=== PATIENT | female | born 1940 | race Caucasian/White ===

== ENCOUNTER 2016-09-30 19:04 | Emergency (ER) | payer MEDICARE, OTHER ==
[2016-09-30 19:37] VITALS: TEMP 97.1
[2016-09-30] MEDS ORDERED: HYDROmorphone HCL INJ 2 MG/ML VIAL IM ONE ×3 (19:51→21:05)
--- NOTE | 2016-09-30 19:56 | ED.PDOC ---
History of Present Illness - General Chief Complaint: Laceration Stated Complaint: laceration to neck Time Seen by Provider: 09/30/16 19:45 Source: patient, family Exam Limitations: no limitations Additional Information: PT WAS WALKING DOG. SHE TRIPPED OVER A YARD ORNAMENT AND FELL ON IT AND CUT HER LEFT NECK. HER NECK SOFT TISSUE HIT THE ORNAMENT, NOT HER HEAD. SHE DENIES HEAD COLLISION. NO HEAD OR NECK JOINT PAIN (JUST LEFT ANTERIOR SOFT TISSUE). NO AMS; SHE JUST SLIPPED/TRIPPED. NO SWALLOWING OR BREATHING TROUBLES. SHE STATES SHE IS ALLERGIC TO THE TETANUS SHOT, THUS DECLINES. - History of Present Illness Occurred: just prior to arrival Severity: severe Pain Location: neck Method of Injury: fall Improving Factors: nothing Worsening Factors: nothing Loss of Consciousness: no loss of consciousness Associated Symptoms (Fall): denies symptoms Allergies/Adverse Reactions: Allergies Sulfa Drugs Allergy (Unknown, Verified 10/08/12 08:15) Tetanus Immune Globulin [From Tet-Conn G] Allergy (Unknown, Verified 10/08/12 08 :15) Home Medications: Ambulatory Orders Carbidopa-Levodopa [Carbidopa/Levodopa 25-100 mg] 1 tab PO PRN 08/29/15 Esomeprazole Magnesium [Nexium] 40 mg PO BEDTIME 08/29/15 Estradiol [Estrace] 0.5 mg PO BEDTIME 08/29/15 Gabapentin [Neurontin] 1,500 mg PO BEDTIME 08/29/15 HYDROcodone 10MG/APAP 325MG [[place] 10/325] 1 ea PO PRN 08/29/15 Lisinopril 10 mg PO DAILY 08/29/15 Polyethylene Glycol 3350 [Miralax] 17 gm PO DAILY 08/29/15 Triamcinolone 0.1% Oint [Kenalog 0.1% Ointment] 0 gm TOP PRN 08/29/15 Cephalexin Monohydrate [Keflex] 500 mg PO BID #14 cap 09/30/16 Review of Systems - Review of Systems Constitutional: States: no symptoms reported EENTM: Denies: eye pain, blurred vision, ear pain, nose pain, throat pain, mouth pain Respiratory: States: no symptoms reported. Denies: cough, short of breath Cardiology: States: no symptoms reported Gastrointestinal/Abdominal: States: no symptoms reported Genitourinary: States: no symptoms reported Musculoskeletal: States: no symptoms reported. Denies: neck pain Neurological: States: no symptoms reported Endocrine: States: no symptoms reported Hematologic/Lymphatic: States: no symptoms reported All other Systems: Reviewed and Negative Past Medical History (General) - Patient Medical History Hx Seizures: No Hx Stroke: No Hx Asthma: No Hx of COPD: No Hx Cardiac Disorders: No Hx Congestive Heart Failure: No Hx Pacemaker: No Hx Hypertension: Yes Hx Diabetes: No Hx MRSA: No Surgical History: appendectomy, Hysterectomy - Vaccination History Hx Tetanus, Diphtheria Vaccination: No - Social History Hx Alcohol Use: Yes Hx Substance Use: No Hx Physical Abuse: No Hx Emotional Abuse: No - Female History Patient is a Female of Child Bearing Age (10 -59 yrs old): No Family Medical History - Family History Father Living Status: Physical Exam - Physical Exam General Appearance: Alert, Well Groomed Head Injury: no evidence of injury Eye Exam: bilateral normal ENT Exam: hearing grossly normal, no dental injury Neck Exam: non-tender, full range of motion, normal alignment, other - L ANTERIOR SKIN AND SOFT TISSUE LAC of neck and mandibular face (8 cm). 1.5 cm face, 6.5 cm neck. Deep lac through skin, fascia, muscle, to mandibular bone but not through it. Facial Nerve tested and still in tact. 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 - Avery Coma Score Best Eye Response (Shashi): (4) open spontaneously Best Verbal Response (Shashi): (5) oriented Best Motor Response (Shashi): (6) obeys commands Avery Total: 15 Progress - Progress Progress: 09/30/16 22:52 LACERATION REPAIR NOTE: THIS WAS A COMPLEX REPAIR - IRREGULARLY SHAPED LACERATION THOUGH SKIN, FASCIA, AND MUSCLE OF LATERAL NECK AND FACE, TO MANDIBULAR BONE (WHICH WAS VISUALIZED THROUGH THE WOUND). DENTITION, TONGUE, PHARYNX, FACIAL NERVE AND TENDONS WERE TESTED VIA PHYSICAL EXAM AND NOTED TO BE SPARED. DIMENSIONS: LEFT ANTERIOR NECK 4.0 CM LINEAR BUT IRREGULAR. L MANDIBLE 2.5 CM TRANSVERSE BUT IRREGULAR. L INFERIOR FACE 1.5 CM LINEAR. DEPTH 3.0 CM (PROBED WITH QTIP). CLEANSED WITH COPIOUS NS THEN HIBICLENS. X-RAY NEG FOR FOREIGN BODY. ANESTHETIZED WITH 2%LICOCAINE WITH EPI X 12 ML. STERILE FIELD CREATED. CLOSED MUSCULAR LAYER WITH 3-0 CHROMIC X 9 SUTURES. CLOSED FAT AND FASCIAL LAYER WITH 3-0 CHROMIC X 8 SUTURES. CLOSED SKIN WITH 3-0 PROLENE X 16 SUTURES. PT MARGARETH PROCEDURE WELL. NO COMPLICATIONS. EBL < 5ML. Departure - Departure Clinical Impression: Laceration Disposition: Discharge to Home or Self Care Departure Forms: ED Discharge - Pt. Copy, Patient Portal Self Enrollment Instructions: DI for Laceration Repair -- Complex Diet: resume usual diet Activity: increase activity as tolerated Referrals: Celso Carrillo III, MD [Primary Care Provider] - 1-2 Days Prescriptions: Cephalexin Monohydrate [Keflex] 500 mg PO BID #14 cap Home Medications: Ambulatory Orders Carbidopa-Levodopa [Carbidopa/Levodopa 25-100 mg] 1 tab PO PRN 08/29/15 Esomeprazole Magnesium [Nexium] 40 mg PO BEDTIME 08/29/15 Estradiol [Estrace] 0.5 mg PO BEDTIME 08/29/15 Gabapentin [Neurontin] 1,500 mg PO BEDTIME 08/29/15 HYDROcodone 10MG/APAP 325MG [[place] 10/325] 1 ea PO PRN 08/29/15 Lisinopril 10 mg PO DAILY 08/29/15 Polyethylene Glycol 3350 [Miralax] 17 gm PO DAILY 08/29/15 Triamcinolone 0.1% Oint [Kenalog 0.1% Ointment] 0 gm TOP PRN 08/29/15 Cephalexin Monohydrate [Keflex] 500 mg PO BID #14 cap 09/30/16 Additional Instructions: Please leave bandage on until Saturday morning. On es AM, remove bandage in shower, twice daily cleanse with soap and water, pat dry, apply bacitracin ointment, and cover with a telfa or large bandaid. Please see your doctor in 1-2 days to look at the wound. Please have stitches removed in 5 to 7 days. Hydrocodone and tylenol are ok but avoid ibuprofen for 24 hours. See your doctor or return to the ER should you start to develop any problems using the muscles of your face or notice any facial drooping. Swelling and bruising on the left face are normal.
[2016-09-30] MEDS ORDERED: LIDOCAINE 2% W/ EPINEPHRINE 20 ML VIAL INJ ONE (20:42)
[2016-09-30] MEDS ORDERED: CHLORHEXIDINE GLUCONATE 4 % 15 ML UD TOP ONE (20:49)
--- NOTE | 2016-09-30 21:00 | RAD ---
EXAM DESCRIPTION: Neck,Soft Tissue CLINICAL HISTORY: laceration to neck COMPARISON: None FINDINGS: Two views of the soft tissues of the neck were submitted. Airway is patent. Prevertebral soft tissues are within normal limits. There is no radiopaque foreign body material. IMPRESSION: No acute abnormalities. Electronically signed by: Devon Hernandez MD 09/30/2016 8:25 PM DRAW HAND
[2016-09-30] MEDS ORDERED: HYDROmorphone HCL INJ 2 MG/ML VIAL ONE (21:02)
[2016-09-30] MEDS ORDERED: BACITRACIN-POLYMYXIN B OINT U/D PACK TOP ONE (22:28)
[2016-09-30 22:59] VITALS: O2SAT 94
[2016-09-30 23:20] VITALS: BP 100/71
--- NOTE | 2016-10-03 11:58 | RAD ---
EXAM DESCRIPTION: Neck,Soft Tissue CLINICAL HISTORY: laceration to neck COMPARISON: None FINDINGS: Two views of the soft tissues of the neck were submitted. Airway is patent. Prevertebral soft tissues are within normal limits. There is no radiopaque foreign body material. IMPRESSION: No acute abnormalities. Electronically signed by: Devon Hernandez MD 09/30/2016 8:25 PM METAL PRECISION MACHINE ASSEMBLER
--- NOTE | 2016-10-21 23:54 | RAD ---
EXAM DESCRIPTION: Neck,Soft Tissue CLINICAL HISTORY: laceration to neck COMPARISON: None FINDINGS: Two views of the soft tissues of the neck were submitted. Airway is patent. Prevertebral soft tissues are within normal limits. There is no radiopaque foreign body material. IMPRESSION: No acute abnormalities. Electronically signed by: Devon Hernandez MD 09/30/2016 8:25 PM SWINE EXTENSION FIELD SPECIALIST
--- NOTE | 2016-10-21 23:54 | RAD ---
EXAM DESCRIPTION: Neck,Soft Tissue CLINICAL HISTORY: laceration to neck COMPARISON: None FINDINGS: Two views of the soft tissues of the neck were submitted. Airway is patent. Prevertebral soft tissues are within normal limits. There is no radiopaque foreign body material. IMPRESSION: No acute abnormalities. Electronically signed by: Devon Hernandez MD 09/30/2016 8:25 PM SUPERVISOR SHIPPING ROOM
== END 2016-09-30 23:19 | disposition home or self-care (01) ==
LOC: ER 19:04
DX: S11.91XA Laceration without foreign body of unspecified part of neck, initial encounter (principal); I10 Essential (primary) hypertension; Z88.2 Allergy status to sulfonamides; Z79.899 Other long term (current) drug therapy; Z88.7 Allergy status to serum and vaccine; W01.118A Fall on same level from slipping, tripping and stumbling with subsequent striking against other sharp object, initial encounter; Y92.007 Garden or yard of unspecified non-institutional (private) residence as the place of occurrence of the external cause
CPT/HCPCS: 70360; J1170

== ENCOUNTER → 2016-12-03 | Outpatient (CLI) | payer MEDICARE, OTHER | END | disposition home or self-care (01) | LOC: GMAL 10:54 | PROVIDERS: ATTEND Family Medicine | DX: D53.9 Nutritional anemia, unspecified (principal); E55.9 Vitamin D deficiency, unspecified ==

== ENCOUNTER → 2016-12-13 | Outpatient (CLI) | payer MEDICARE, OTHER ==
--- NOTE | 2016-12-13 19:32 | MRI ---
EXAM: Brain w/wo Contrast CLINICAL INDICATION: 76-year-old female with headache. Technologist note: Headache, facial droop, left-sided face since fall one and a half months ago. Patient passed out and hit LEFT side of body, could not remember what happened. Facial droop since fall. COMPARISON: None. TECHNIQUE: Multiplanar, multi-sequence MR imaging of the brain pre-and post intravenous administration of gadolinium. FINDINGS: No abnormal increased signal intensity is present on diffusion-weighted imaging to suggest restricted diffusion/acute infarction. There is no evidence of intracranial hemorrhage, mass or edema. Midline structures are within normal limits. Nonspecific 3 mm faint focus of subcentimeter enhancement is identified present level of the RIGHT caudate raising the question of focus of nonspecific enhancement including small focal cavernous malformation other vascular malformation including capillary hemangioma, sequela of subacute infarction and much less likely small focus of demyelination or metastasis, however short-term interval follow-up is recommended. Slight increased FLAIR signal is noted. Postcontrast imaging reveals large LEFT frontal developmental venous anomaly, normal anatomic variant. The ventricles and basal cisterns are normal in size and configuration. Major intracranial flow voids are identified. The paranasal sinuses and mastoid air cells are patent. IMPRESSION: 1. No abnormal increased signal intensity is present on diffusion-weighted imaging to suggest restricted diffusion/acute infarction. 2. Focal area of nonspecific enhancement at the level of the RIGHT caudate head with differential and details as above. Short-term interval follow-up is recommended to assess for stability or resolution. 3. No specific MRI findings noted to suggest etiology of the patient's facial droop. Electronically signed by: Amanda Platt MD 12/13/2016 7:31 PM CDT
== END ==
LOC: MRI 09:06
PROVIDERS: ATTEND Family Medicine
DX: I69.992 Facial weakness following unspecified cerebrovascular disease (principal); R51 Headache

== ENCOUNTER → 2016-12-17 | Outpatient (CLI) | payer MEDICARE, OTHER | END | disposition home or self-care (01) | LOC: GMAL 17:19 | PROVIDERS: ATTEND Family Medicine | DX: L03.90 Cellulitis, unspecified (principal) ==

== ENCOUNTER → 2017-05-06 | Outpatient (CLI) | payer MEDICARE, OTHER | END | disposition home or self-care (01) | LOC: GMAL 10:28 | PROVIDERS: ATTEND Family Medicine | DX: D51.3 Other dietary vitamin B12 deficiency anemia (principal); E55.9 Vitamin D deficiency, unspecified ==

== ENCOUNTER → 2017-05-13 | Outpatient (CLI) | payer MEDICARE, OTHER | END | disposition home or self-care (01) | LOC: GMAL 14:28 | PROVIDERS: ATTEND Family Medicine | DX: R30.0 Dysuria (principal) ==

== ENCOUNTER → 2017-05-15 | Outpatient (CLI) | payer MEDICARE, OTHER ==
--- NOTE | 2017-05-16 09:35 | US ---
EXAM DESCRIPTION: Breast,Left CLINICAL HISTORY: 76 yearsFemaleBREAST LUMP . Ridgelike tissue on the lateral left breast. COMPARISON: Digital 3-D tomosynthesis bilateral breasts on this visit. Thyroid ultrasound on this visit. TECHNIQUE: Transcutaneous scanning of the left breast utilizing two-dimensional and Doppler modes. Scanning performed by the lodging facilities attendant and Dr. Ugalde. FINDINGS: Scanning at the 300 clock position of the left breast 8 cm from the nipple. Homogeneous fatty tissue noted. No discrete solid mass or cyst. No parenchymal edema or calcifications. Nonvascular. IMPRESSION: 1. Bi-Rads Category 2: Benign. 2. Please refer to bilateral 3-D breast tomosynthesis diagnostic examination on this visit. The findings and the follow-up plan were reviewed in person with the patient after the examination.. Written communication regarding the impression and follow-up will be mailed to the patient and referring health care provider. Electronically signed by: Vinny Ugalde MD 05/16/2017 9:33 AM [facility]
--- NOTE | 2017-05-16 09:53 | US ---
EXAM DESCRIPTION: Thyroid CLINICAL HISTORY: NONTOXIC SINGLE THYROID NODULE COMPARISON: Patient had diagnostic 3-D breast tomosynthesis bilaterally today and left breast ultrasound. TECHNIQUE: Transcutaneous scannin-dimensional and Doppler modes. FINDINGS: Right lobe dimensions 4.1 x 1.8 x 1.5 cm. Heterogeneous echoes. Complex nodule in the upper right lobe of the gland with transverse diameter 1.4 cm. Sagittal dimensions are 1.6 x 0.8 cm, nonvascular in the lower pole is a mostly hypoechoic solid nodule measuring 1.3 cm transverse and 1.4 x 0.7 cm in the sagittal plane. Nonvascular. Complex nodule which is mostly cystic with possible mural nodular thickening measuring 1.2 cm transverse and 1.1 x 0.9 cm in the sagittal plane. Nonvascular. Vascularity No microcalcifications. Contour right lobe smooth. Juxta-thyroid masses/fluid: none. Left lobe dimensions 3.5 x 1.6 x 1.5 cm. Heterogeneous echoes. Complex nodule in the mid lobe measuring 1.0 cm transverse and 5.7 x 8.8 mm sagittal. Nonvascular. Otherwise normal vascularity No microcalcifications. Contour left lobe smooth. Juxta-thyroid masses/fluid: none. Isthmus thickness 1.7 mm. Heterogeneous echoes. No cystic, no solid, and no complex lesions. Otherwise normal vascularity. Contour smooth. IMPRESSION: 1. Two complex nodules in the right lobe of the thyroid gland with transverse diameter of almost 1.5 cm. These nodules are not vascular. These nodules meet the imaging criteria for Fine needle aspiration sampling according to RP best practice guidelines, adopted from ACR white paper and Beatty 3-tiered guidelines on incidental thyroid nodules. Please see below.* Other nodules in the right lobe and left lobe do not meet these criteria. These recommendations do not apply to patients with increased risk for thyroid cancer or patients with symptomatic thyroid disease. 2. No discrete solid masses, cystic masses, or edema in the surrounding soft tissues. *Further evaluation by thyroid US recommended for: -Solitary incidental thyroid nodule (ITN) with high risk imaging features (locally invasive nodule or suspicious lymph nodes) -Solitary ITN of any size in pediatric patients <= 18 years of age -Solitary ITN >= 1 cm in axial plane in patients between 18 and 35 years of age -Solitary ITN >= 1.5 cm in axial plane in patients >= 35 years of age -Heterogeneous enlarged thyroid gland -ITN avid on FDG-PET or other nuclear medicine (MIBI and octreotide) scans. FNA biopsy is also recommended for PET avid nodules. 2.No f/u imaging is recommended for ITN's not meeting the above criteria. 3.For multiple thyroid nodules, the above recommendations for solitary ITN are to be applied to the largest nodule. 4.No US or f/u recommended for ITN's without high risk features in patients with limited life expectancy or significant co-morbidities, unless clinically warranted. 5.These recommendations do not apply to patients w/ increased risk for thyroid cancer or patients with symptomatic thyroid disease. Recommendations for f/u of Incidental Thyroid Nodules (ITN) found on CT, MR, NM and Extrathyroidal US are based upon the ACR white paper and Beatty 3-tiered system for managing ITN's: J Am [employer]nette Radiology 2015 Sep;12(2): 143-50 Electronically signed by: Vinny Ugalde MD 05/16/2017 9:52 AM CDT
--- NOTE | 2017-05-16 11:22 | MAM ---
EXAM DESCRIPTION: 3D Diagnostic, Bilateral CLINICAL HISTORY: 76 yearsFemaleBREAST LUMP mother with history of breast cancer. Remote family history of breast cancer. Bilateral benign breast biopsies. Hysterectomy 1978. Currently on HRT. COMPARISON: 2-D digital screening bilateral study 06/18/2016.. No prior reports available. Reports from prior examinations also reviewed. Report from prior examination also reviewed. TECHNIQUE: Bilateral CC , LM, and MLO projection full-field images, 3-D tomosynthesis digital mammographic technique. Also bilateral synthesized CC/ MLO , and LM full-field images. CAD not utilized. FINDINGS: The breast parenchymal density pattern is: Scattered areas of fibroglandular density. No skin thickening or nipple retraction skin marker at the 300 clock position of the middle third of the left breast where patient palpates a mass. Small ridgelike tissue palpable. Bilateral microcalcifications and coarse calcifications. Small axillary lymph nodes. Bilateral intramammary lymph nodes. Larger calcifications in the bilateral breasts may indicate areas of fat necrosis. No focal, stellate mass or density, focal asymmetry , and no suspicious microcalcifications bilaterally. Stable mammograms compared to prior study, taking into account differences in mammographic technique. ULTRASOUND: Scanning at the 300 clock position of the left breast 8 cm from the nipple. Homogeneous fatty tissue noted. No discrete solid mass or cyst. No parenchymal edema or calcifications. No abnormal vascularity. IMPRESSION: BI-RADS CATEGORY: 2 - BENIGN FINDINGS. FOLLOW UP: Return to routine digital bilateral screening, one year interval from April 2017. Written communication explaining the IMPRESSION and follow-up, will be mailed to the patient and referring health care provider. According to the [employer], yearly mammograms are recommended starting at age 40 and continuing as long as a woman is in good health. Any breast change noted on a breast self-exam should be reported promptly to the patient's healthcare provider. Breast MRI is recommended for women with an approximately 20-25% or greater lifetime risk of breast cancer, including women with a strong family history of breast or ovarian cancer and women who have been treated for Hodgkin's disease. A negative mammographic report should not delay tissue diagnosis in patients with significant clinical history or physical findings. Extremely dense breast tissue limits the sensitivity of digital mammography. Electronically signed by: Vinny Ugalde MD 05/16/2017 11:21 AM CDT
== END | disposition home or self-care (01) ==
LOC: MAMMO 10:57
PROVIDERS: ATTEND Family Medicine
DX: Z12.31 Encounter for screening mammogram for malignant neoplasm of breast (principal); E04.1 Nontoxic single thyroid nodule
CPT/HCPCS: 76536; 76641; G0202; G0279

== ENCOUNTER → 2017-05-29 | Outpatient (CLI) | payer MEDICARE, OTHER ==
--- NOTE | 2017-05-29 16:25 | US ---
EXAM DESCRIPTION: Biopsy of Thyroid CLINICAL HISTORY: 76 yearsFemale COMPARISON: Ultrasound thyroid gland 05/15/2017. TECHNIQUE: Procedure was explained to the patient with risks and benefits. The patient gave verbal and written consent. Sterile preparation draping. 1% xylocaine dermal anesthetic. Sterile ultrasound guidance. A total of eight passes four into the nodule in the upper right lobe and four in the more inferior nodule with a cystic component. Three needle samplings per nodule with a separate 1.5 inch, 25-gauge needle per sample, and one aspiration, or nodule with a separate 1.5 inch, 25-gauge needle/10-cc syringe set, per aspiration. Each sample was placed on a separate slide and fixed in 95% alcohol container. for later pathologic examination at remote facility. . Aspirate and needle placed in Saccomanno fluid container. Patient tolerated procedure well, with no immediate complications. FINDINGS: Prior to the procedure, images of the nodules show no significant change from the prior study. Images demonstrate the echogenic needle within each of the nodules in the right lobe of the thyroid gland. Adequate Samples and aspirates were obtained. IMPRESSION: Successful, ultrasound-guided fine-needle sampling and aspiration of two nodules in the right lobe of the thyroid gland. Pathology reports are pending at remote laboratory facility. Electronically signed by: Vinny Ugalde MD 05/29/2017 4:24 PM CDT
== END | disposition home or self-care (01) ==
LOC: US 09:57
PROVIDERS: ATTEND Family Medicine
PROC: 0GBH3ZX Excision of Right Thyroid Gland Lobe, Percutaneous Approach, Diagnostic (ICD-10-PCS; principal; 2017-05-29)
PROC: BG44ZZZ Ultrasonography of Thyroid Gland (ICD-10-PCS; 2017-05-29)
DX: E04.1 Nontoxic single thyroid nodule (principal)

== ENCOUNTER → 2017-11-21 | Outpatient (CLI) | payer MEDICARE, OTHER ==
--- NOTE | 2017-11-22 08:02 | RAD ---
EXAM DESCRIPTION: Ankle,Left 3 Views CLINICAL HISTORY: 76 years, Female, PAIN IN LEFT ANKLE COMPARISON: None. TECHNIQUE: AP/lateral/oblique of the left ankle FINDINGS: Intact medial and lateral malleolus. There is minimal soft tissue swelling laterally and medially. Proximal metatarsals appear intact. Few phleboliths in the lower leg. Intact dome of the talus. Lateral view shows no evidence of fracture of the body of the talus or calcaneus. No calcaneal spurring is seen. No ankle joint narrowing, spurring or effusion. IMPRESSION: Negative for fracture or dislocation. Electronically signed by: Flako Bowman MD 11/22/2017 8:00 AM CDT
--- NOTE | 2017-11-22 08:03 | RAD ---
EXAM DESCRIPTION: Foot,Left 3 Views CLINICAL HISTORY: 76 years, Female, PAIN IN LEFT FOOT COMPARISON: None TECHNIQUE: AP, lateral, and oblique views of the left foot FINDINGS: No fracture or dislocation. There is no other bone, joint, or soft tissue abnormality observed. Bones appear osteopenic. There is no radiopaque foreign body. Question small ankle joint effusion on lateral view with minimal spurring. IMPRESSION: Negative for fracture or dislocation. Electronically signed by: Flako Bowman MD 11/22/2017 8:01 AM CDT
== END ==
LOC: RAD 08:39
PROVIDERS: ATTEND Orthopaedic Surgery
DX: M79.672 Pain in left foot (principal); M25.572 Pain in left ankle and joints of left foot

== ENCOUNTER → 2017-12-02 | Outpatient (CLI) | payer MEDICARE, OTHER ==
--- NOTE | 2017-12-02 10:32 | CT ---
EXAM DESCRIPTION: Abdomen/Pelvis w/Contrast: Computed Tomography. CLINICAL HISTORY: ABDOMINAL DISTENSION COMPARISON: None. TECHNIQUE: Spiral-axial scans at 5.0 mm intervals through the abdomen and pelvis, after nonionic IV contrast. No oral contrast. Coronal and sagittal 2.0 mm reconstructions. Delayed scans, liver through the pelvis. Axial-spiral 5mm. No adverse reactions. Total Exam DLP: 1832.74 mGy-cm. This exam was performed according to our departmental dose-optimization program which includes automated exposure control, adjustment of the mA and/or kV according to patient size and/or use of iterative reconstruction technique; to reduce radiation dose to as low as reasonably achievable (ALARA). FINDINGS: Lung bases and pleura: Minimal atelectasis in the bilateral bases. Liver, Stomach, Spleen, Adrenal Glands: 2.2 cm cyst with Hounsfield density +16 and the left lobe of the liver. Large hiatal hernia. Other solid organs are negative.. Pancreas, Gallbladder, Ducts: Minimally distended. Intermediate signal in the neck of the gallbladder. Pancreatic duct upper normal caliber. Pancreas negative. Kidneys and Ureters: Unremarkable. Mesentery: Normal density. No fascial thickening. No free air or free fluid. Aorta: 3.1 cm AP diameter between the diaphragm hiatus and the origin of the celiac axis. Moderate atherosclerotic calcification. Small Bowel: Unremarkable. Terminal Ileum/Cecum: Negative. Appendix not seen. Colon: Redundant splenic flexure. Diverticula in the distal descending colon and sigmoid colon. Redundant sigmoid colon. Pelvic Organs: No fluid in the cul-de-sac. Vaginal cuff is unremarkable. No radiodense stones in the urinary bladder which is minimally distended. Spine and Bony Pelvis: Minimal compression of the mid and anterior aspect of the L1 vertebral body. 3 mm retropulsion of the inferior endplate but no canal stenosis. Spondylosis and disc space narrowing at L5-S1 with bilateral foraminal narrowing. Abdominal Wall/Back Soft Tissues: Negative. IMPRESSION: 1. 2.2 cm cyst in the left hepatic lobe otherwise unremarkable. 2. Moderate hiatal hernia. 3. 3.1 cm abdominal aortic aneurysm between the diaphragm hiatus and the origin of the celiac axis. Imaging follow-up recommended in 3 year interval according to [facility] Best Practice recommendations utilizing guidelines from the Society for Vascular Surgery. Please see below.* 4. Diverticulosis distal colon with sigmoid redundancy but no complications. 5. Probably old compression injury L1 vertebral body with minimal retropulsion. Spondylosis L5-S1. *AAA Size: Follow-up Recommendation (1): 2.6 - 2.9 cm Every 5 years (2) 3.0 - 3.4 cm Every 3 years 3.5 - 3.9 cm Every 12 months 4.0 - 4.4 cm Every 12 months, vasc consult rec 4.5 - 5.4 cm Every 6 months, vasc consult rec >=5.5 cm Referral to vascular surgeon recommended (1)Based upon the Society for Vascular Surgery Guidelines: J Vasc Surg. 2009 May;50(4 Suppl):S2-49 (2)For aortas of max marjan of 2.6-2.9 cm that meet criteria for AAA (>= 1.5 x proximal normal segment) Electronically signed by: Vinny Ugalde MD 12/02/2017 10:31 AM CDT
== END | disposition home or self-care (01) ==
LOC: CT 08:00
PROVIDERS: ATTEND Internal Medicine Gastroenterology
DX: R14.0 Abdominal distension (gaseous) (principal)

== ENCOUNTER 2018-01-01 08:00 | Day surgery (SDC) | payer MEDICARE, OTHER ==
[~2018-01-01 08:00] MED LIST: LACTATED RINGERS 1,000 ML ONE
[2018-01-01 09:56] VITALS: TEMP 97.6
--- NOTE | 2018-01-01 09:59 | OP ---
DATE OF PROCEDURE: 01/01/18 PREPROCEDURE DIAGNOSIS: 1. Colorectal cancer screening. POSTPROCEDURE DIAGNOSIS: 1. Diverticulosis. PROCEDURE: 1. Colonoscopy. SURGEON: Carlos Moreno MD. SEDATION: Monitored anesthesia care. ESTIMATED BLOOD LOSS: 0 mL. PROCEDURE: Informed consent was obtained prior to sedation. The preprocedure cardiopulmonary assessment was satisfactory. The patient was brought to the Endoscopy Suite and placed in the left lateral decubitus position. The patient was then sedated by the anesthesia team. Perianal exam was normal. Digital rectal exam showed an anal stricture. The tip of the Olympus colonoscope was inserted into the rectum and advanced under direct visualization to the cecum as identified by the presence of the appendiceal orifice and ileocecal valve. Preparation of the colon was adequate. Upon reaching the cecum, the endoscope was slowly withdrawn from the patient with careful attention paid to the entire colonic mucosa for the identification of any flat polyps or small vascular lesions. No polyps were found. There was diverticulosis throughout the entire colon. Retroflexed view of the anal verge showed no abnormalities. The endoscope was then withdrawn from the patient and the procedure terminated. RECOMMENDATION: 1. Discharge the patient home with escort. 2. Resume regular diet. 3. Continue present medications. 4. No further colorectal screening due to age and absence of polyps. 5. Followup in my office as previously scheduled. #[id number] [facility]
[2018-01-01] MEDS ORDERED: LIDOCAINE 1% 10 ML VIAL INJ ONE (10:00)
[2018-01-01] MEDS ORDERED: PROPOFOL 200 MG/20 ML VIAL IV ONE (10:00)
[2018-01-01 13:26] VITALS: BP 118/70; O2SAT 96
== END 2018-01-01 10:38 ==
LOC: AMB 08:00
PROVIDERS: ATTEND Internal Medicine Gastroenterology
DX: Z12.11 Encounter for screening for malignant neoplasm of colon (principal); K57.30 Diverticulosis of large intestine without perforation or abscess without bleeding; R14.0 Abdominal distension (gaseous); K59.00 Constipation, unspecified; K21.9 Gastro-esophageal reflux disease without esophagitis; I10 Essential (primary) hypertension; Z80.0 Family history of malignant neoplasm of digestive organs; Z87.891 Personal history of nicotine dependence; Z88.2 Allergy status to sulfonamides; Z88.7 Allergy status to serum and vaccine; Z79.82 Long term (current) use of aspirin; Z79.899 Other long term (current) drug therapy
CPT/HCPCS: 00812; G0105; J3490; J7120

== ENCOUNTER → 2018-06-20 | Outpatient (CLI) | payer MEDICARE, OTHER ==
--- NOTE | 2018-06-20 12:56 | US ---
US THYROID CLINICAL STATEMENT: ENLARGEMENT OF THYROID. No palpable mass. No prior thyroid surgery. No thyroid medication. COMPARISON: Thyroid ultrasound 05/15/2017. FINDINGS: Size right thyroid lobe: 4.1 x 1.8 x 1.5 cm Size left thyroid lobe: 3.5 x 1.6 x 1.5 cm Size isthmus: 0.17 cm Estimated total number of nodules greater than or equal to 1 cm: 4 Nodule 1: Size: 1.4 x 1.4 x 0.8 cm Location: Right Mid Composition: spongiform: 0 points Echogenicity: hypoechoic: 2 points Shape: wider than tall: 0 points Margins: smooth: 0 points Echogenic foci: peripheral calcifications: 2 points ACR Total Points: 4; ACR TI-RADS risk category: TR4 - moderately suspicious nodule. Nodule 2: Size: 1.1 x 0.9 x 0.8 cm Location: Right Mid Composition: cystic or completely cystic: 0 points Echogenicity: hypoechoic: 2 points Shape: wider than tall: 0 points Margins: smooth: 0 points Echogenic foci: large comet tail artefact: 0 points ACR Total Points: 2; ACR TI-RADS risk category: TR2 - nonsuspicious nodule. Nodule 3: Size: 1.5 x 1.1 x 0.9 cm Location: Right Lower Composition: solid or almost completely solid: 2 points Echogenicity: hypoechoic: 2 points Shape: wider than tall: 0 points Margins: smooth: 0 points Echogenic foci: none: 0 points ACR Total Points: 4; ACR TI-RADS risk category: TR4 - moderately suspicious nodule. Nodule 4: Size: 1.0 x 0.9 x 0.6 cm Location: Left Mid Composition: solid or almost completely solid: 2 points Echogenicity: hypoechoic: 2 points Shape: wider than tall: 0 points Margins: smooth: 0 points Echogenic foci: none: 0 points ACR Total Points: 4; ACR TI-RADS risk category: TR4 - moderately suspicious nodule. Another mostly cystic structure in the lower left lobe with single echogenic focus measures 0.5 x 0.5 x 0.3 cm. Wider than tall, smooth margins, no calcifications. Soft tissues around the thyroid gland show no evidence of distinct solid mass or cyst. No abnormal vascularity or overlying skin changes. No parenchymal edema or large calcifications. IMPRESSION: 1. Nodule 1: ACR TI-RADS 2017 Category 4. Recommend: Follow-up ultrasound in 1 year.. 1.4 cm maximum diameter. Please see ACR TI-RADS 2017 recommendations below.* 2. Nodule 2: ACR TI-RADS 2017 Category 2. Recommend: No further follow-up.. 3. Nodule 3: ACR TI-RADS 2017 Category 4. Recommend: Ultrasound-guided fine needle aspiration. 4. Nodule 4: ACR TI-RADS 2017 Category 4. Recommend: Follow-up ultrasound in 1 year. Soft tissues around the thyroid gland are unremarkable. *ACR TI-RADS 2017 Recommendations: TR1: No FNA or follow up TR2: No FNA or follow up TR3: FNA if >/= 2.5 cm, follow up if 1.5 - 2.4 cm in 1, 3, and 5 years TR4: FNA if >/= 1.5 cm, follow up if 1.0 - 1.4 cm in 1, 2, 3, and 5 years TR5: FNA if >/= 1.0 cm, follow up if 0.5 - 0.9 cm every year for 5 years ACR TI-RADS recommends that no more than two nodules with the highest ACR TI-RADS total point should be biopsied and no more than four nodules should be followed. Electronically signed by: Vinny Ugalde MD 06/20/2018 12:55 PM CDT
--- NOTE | 2018-06-23 16:25 | MAM ---
EXAM DESCRIPTION: 3D Screening BILATERAL : Digital Mammography. CLINICAL HISTORY: 77 years Female SCREENING . Tenderness around nipple; sensation of a burn. No personal or family history of breast cancer.. Childbirth. Hysterectomy 49 years ago. Currently on HRT. Bilateral breast biopsies. Lifetime risk of developing breast cancer (Tyrer-Cuzick model)(%): 5.2. COMPARISON: 2-D digital screening bilateral mammography 06/18/2016. Bilateral diagnostic digital breast tomosynthesis 05/15/2017. No prior reports available. TECHNIQUE: Bilateral CC and MLO projection full-field images, Digital tomosynthesis mammographic technique. Bilateral digital 2-D full-field MLO images. CAD not utilized. FINDINGS: The breast parenchymal density pattern is: Almost entirely fatty. No skin thickening or nipple retraction. Right axillary lymph nodes and anterior coarse calcification with medial posterior skin moles. Large coarse calcification in the central left breast with axillary lymph node. Stable since the prior study. Solitary bilateral microcalcifications. No new focal, stellate mass or density, focal asymmetry , and no suspicious microcalcifications bilaterally. Stable mammograms compared to prior study. IMPRESSION: Benign exam. BIRAD CATEGORY: 2 BENIGN FINDINGS. RECOMMENDATIONS: FOLLOW UP: Routine digital bilateral screening, one year interval from May 2018. Written communication explaining the IMPRESSION and follow-up, will be mailed to the patient and referring health care provider. According to the [employer], yearly mammograms are recommended starting at age 40 and continuing as long as a woman is in good health. Any breast change noted on a breast self-exam should be reported promptly to the patient's healthcare provider. Breast MRI is recommended for women with an approximately 20-25% or greater lifetime risk of breast cancer, including women with a strong family history of breast or ovarian cancer and women who have been treated for Hodgkin's disease. A negative mammographic report should not delay tissue diagnosis in patients with significant clinical history or physical findings. Extremely dense breast tissue limits the sensitivity of digital mammography. Electronically signed by: Vinny Ugalde MD 06/23/2018 4:23 PM CDT
== END ==
LOC: MAMMO 11:30
PROVIDERS: ATTEND Family Medicine
DX: Z12.31 Encounter for screening mammogram for malignant neoplasm of breast (principal); E07.9 Disorder of thyroid, unspecified

== ENCOUNTER → 2018-06-25 | Outpatient (CLI) | payer MEDICARE, OTHER ==
--- NOTE | 2018-06-25 15:39 | US ---
Thyroid Ultrasound Biopsy CLINICAL INFORMATION: Mostly solid nodule inferior right lobe on prior thyroid ultrasound 06/20/2018. TECHNIQUE: Procedure was explained to the patient with risks and benefits. The patient gave verbal and written consent. Sterile preparation draping. 1% xylocaine dermal anesthetic 9-1 mixture with sodium bicarbonate. Sterile ultrasound guidance. A total of 6 passes solid nodule inferior right lobe; 3 needle samplings with a separate 1.5 inch, 25-gauge needle per sample, and 3 aspirations, with a separate 1.5 inch, 25-gauge needle/10-cc syringe set, per aspiration. Each sample was placed on a separate slide and fixed in 95% alcohol container. Saccomanno fluid drawn into aspirate needle and rinse injected into Saccomanno container. Specimens to be sent for pathologic examination at remote facility. . Patient tolerated procedure well. Biopsy #: 1 Nodule reference number based on prior diagnostic ultrasound:3 Maximum size: 1.5 cm Location: right; lower ACR TI-RADS risk category: TR4 (4-6 points) Reason for biopsy: meets ACR TI-RADS criteria Complications: None . Images recorded after the biopsy showed no significant changes in the nodule that was biopsied or the remainder of the right lobe or surrounding soft tissues. IMPRESSION: Successful ultrasound guided fine needle aspiration of thyroid nodule, solid, lower pole of the right thyroid lobe. Electronically signed by: Vinny Ugalde MD 06/25/2018 3:38 PM CDT
== END ==
LOC: US 15:27
PROVIDERS: ATTEND Family Medicine
DX: E07.9 Disorder of thyroid, unspecified (principal)

== ENCOUNTER 2018-09-10 05:44 | Day surgery (SDC) | payer MEDICARE, OTHER ==
[2018-09-10] MEDS ORDERED: LACTATED RINGERS 1,000 ML ONE (07:02)
--- NOTE | 2018-09-10 09:41 | OP ---
DATE OF PROCEDURE: 09/10/18 PREPROCEDURE DIAGNOSIS: 1. Esophageal dysphagia. POSTPROCEDURE DIAGNOSIS: 1. Hiatal hernia. 2. Presbyesophagus. PROCEDURE: 1. Upper endoscopy with Savary dilation. SURGEON: Carlos Moreno MD. SEDATION: Monitored anesthesia care. ESTIMATED BLOOD LOSS: 0 mL. PROCEDURE: Informed consent was obtained prior to sedation. The preprocedure cardiopulmonary assessment was satisfactory. The patient was brought to the Endoscopy Suite and placed in the left lateral decubitus position. The patient was then sedated by the anesthesia team. The tip of the Olympus EGD scope was inserted into oropharynx and advanced under direct visualization across the cricopharyngeus muscle into the esophageal lumen. The esophagus appeared somewhat tortuous and there was no significant peristalsis noted. There was a 5 cm hiatal hernia ranging from 35 to 40 cm from the incisors. Retroflexed view of the cardia confirmed this hernia. The remaining examination of the stomach was normal. The first and second portions of the duodenum were normal. The decision was made to dilate the esophagus. A spring-tip guidewire was fed through the channel of the scope with the tip terminating in the antrum. While leaving the guidewire in place, the endoscope was withdrawn. An 18 mm Savary dilator was inserted over the guidewire with moderate resistance, dilating the entire esophagus. The dilator and guidewire were then withdrawn and the procedure terminated. RECOMMENDATION: 1. Discharge the patient home with escort. 2. Resume regular diet. 3. Continue present medications. 4. Followup in my office in two months' time. #[id number] MTDD
[2018-09-10] MEDS ORDERED: PROPOFOL 200 MG/20 ML VIAL IV ONE (10:00)
[2018-09-10] MEDS ORDERED: LIDOCAINE 1% 10 ML VIAL INJ ONE (10:00)
[2018-09-10 10:01] VITALS: BP 122/74; TEMP 97.4; O2SAT 96
== END 2018-09-10 09:57 | disposition home or self-care (01) ==
LOC: AMB 05:44
PROVIDERS: ATTEND Internal Medicine Gastroenterology
DX: K22.8 Other specified diseases of esophagus (principal); K44.9 Diaphragmatic hernia without obstruction or gangrene; K21.9 Gastro-esophageal reflux disease without esophagitis; I10 Essential (primary) hypertension; Z79.82 Long term (current) use of aspirin; Z79.899 Other long term (current) drug therapy
CPT/HCPCS: 00731; 43248; J3490; J7120

== ENCOUNTER → 2018-09-19 | Outpatient (CLI) | payer MEDICARE, OTHER ==
--- NOTE | 2018-09-19 13:04 | MRI ---
EXAM DESCRIPTION: Lumbar Spine w/o Contrast : Magnetic Resonance Imaging. CLINICAL HISTORY: RADICULOPATHY COMPARISON: LUMBAR TECHNIQUE: Multiplanar, multiple standard sequences, non contrast MRI, lumbar spine. FINDINGS: Heterogeneous marrow signal in the spine and included sacrum and pelvic bones. L5-S1. Disc space well demonstrated on axial T2 series 501, image 3. Disc desiccation and moderate disc space loss. Minimal bulge into the canal with more bulging bilaterally into the foramen. Bilateral Modic type II endplate reactive changes with bilateral moderate foraminal narrowing and disc spur complex abutting the exiting L5 nerves. Minimal disc bulge into the right subarticular recess. No canal stenosis. Minimal hypertrophy of the left flavum ligament. L4-5: Disc space maintained with no significant disc bulging. Minimal flavum ligament hypertrophy bilaterally. Minimal effusion in the left facet joint. Mild left foraminal narrowing with canal and right foramen patent. L3-4: Disc desiccation with disc space maintained. Posterior elements unremarkable. Canal and foramina are patent. L2-3: Normal signal in the disc with disc space maintained. Posterior elements unremarkable. Canal and foramina are patent. Focal circumscribed hemangioma in the L3 vertebral body is hyperintense on T1 and T2 sequences. L1-2: Minimal disc space loss disc desiccation. Anterior disc bulge and endplate ridging. Grade 1 retrolisthesis 3 mm posteriorly. Conus terminates at this level. Posterior disc bulge. Minimal facet arthrosis left, flavum ligaments negative. Disc bulge inferior to the superior L2 endplate with minimal narrowing of the bilateral subarticular recesses. Canal and foramina are patent. Prior compression injury of the L1 vertebra centrally and anteriorly with heterogeneous marrow signal but no marrow edema in the vertebral body or the pedicles. No significant retrolisthesis. T12-L1: Minimal disc desiccation with anterior bulging and endplate ridging. No posterior bulge. Posterior elements are unremarkable. Canal and foramina are patent. Circumscribed signal in the posterior superior L1 endplate and the posterior T12 vertebral body hyperintense on T1 and T2 sequences consistent with hemangiomas. Mild dextroscoliosis L2-L5. Rudimentary S1-S2 disc. Paravertebral soft tissues bilateral paraspinal muscle atrophy. Prominent extrarenal pelvis right kidney.. No evidence of abnormal marrow signal in the remaining vertebral bodies and the posterior elements. Vertebral bodies are not compressed at other levels except L1. IMPRESSION: 1. Diffuse marrow heterogeneity as described. Hemangiomas at several levels as described. Old compression injury L1 with no significant retrolisthesis. No acute compression type vertebral body fractures. 2. Bilateral disc spur complexes encroaching on the L5-S1 foramina abutting the bilateral L5 nerve roots. Correlate for radiculopathy. Minimal effacement of the right subarticular recess. Correlate for right S1 radiculopathy. 3. Grade 1 retrolisthesis L1-L2, disc desiccation and anterior disc bulge and ridging of the endplates. Posterior disc bulge with minimal narrowing of the bilateral subarticular recesses. Electronically signed by: Vinny Ugalde MD 09/19/2018 1:03 PM [employer]IST
== END ==
LOC: MRI 08:08
PROVIDERS: ATTEND Family Medicine
DX: M51.16 Intervertebral disc disorders with radiculopathy, lumbar region (principal); M25.78 Osteophyte, vertebrae

== ENCOUNTER → 2018-12-23 | Outpatient (CLI) | payer MEDICARE, OTHER ==
--- NOTE | 2018-12-23 15:25 | US ---
US THYROID CLINICAL STATEMENT: THYROID NODULE. COMPARISON: None TECHNIQUE: Transcutaneous scanning, grayscale and Doppler modes. FINDINGS: Size right thyroid lobe: 5.2 x 1.9 x 1.6 cm Size left thyroid lobe: 3.6 x 1.3 x 1.0 cm Size isthmus: 0.1 cm Estimated total number of nodules greater than or equal to 1 cm: 2 Nodule 1: Size: 2.2 x 1.3 x 1.1 cm Location: Right Mida Composition: mixed cystic and solid: 1 point Echogenicity: hypoechoic: 2 points Shape: wider than tall: 0 points Margins: ill-defined: 0 points Echogenic foci: None. ACR Total Points: 3; ACR TI-RADS risk category: TR3 - mildly suspicious nodule. Nodule 2: Size: 1.6 x 1.3 x 1.1 cm Location: Right Mid Composition: mixed cystic and solid: 1 point Echogenicity: hypoechoic: 2 points Shape: wider than tall: 0 points Margins: smooth: 0 points Echogenic foci: none: 0 points ACR Total Points: 3; ACR TI-RADS risk category: TR3 - mildly suspicious nodule. Nodule 3: Size: 0.9 x 0.8 x 0.5 cm Location: Left Mid Composition: spongiform: 0 points Echogenicity: hypoechoic: 2 points Shape: wider than tall: 0 points Margins: smooth: 0 points Echogenic foci: none: 0 points ACR Total Points: 3; ACR TI-RADS risk category: TR3 - mildly suspicious nodule. The soft tissue around the thyroid gland demonstrates no dominant solid mass or distinct cyst. No parenchymal edema or large calcifications. No overlying skin changes or abnormal vascularity IMPRESSION: 1. Nodule 1: ACR TI-RADS 2017 Category TR3. Recommend: Follow-up ultrasound in 1 year.. Recommendations based upon [employer] recommendations and ACR TI-RADS 2017 guidelines. Please see below*. 2. Nodule 2: ACR TI-RADS 2017 Category TR3. Recommend: Follow-up ultrasound in 1 year. 3. Nodule 3: ACR TI-RADS 2017 Category TR3. Recommend: No further follow-up. 4. Soft tissue around the thyroid gland is unremarkable. *ACR TI-RADS 2017 Recommendations: TR1: No FNA or follow up TR2: No FNA or follow up TR3: FNA if >/= 2.5 cm, follow up if 1.5 - 2.4 cm in 1, 3, and 5 years TR4: FNA if >/= 1.5 cm, follow up if 1.0 - 1.4 cm in 1, 2, 3, and 5 years TR5: FNA if >/= 1.0 cm, follow up if 0.5 - 0.9 cm every year for 5 years ACR TI-RADS recommends that no more than two nodules with the highest ACR TI-RADS total point should be biopsied and no more than four nodules should be followed. These recommendations do not apply to patients with increased risk for thyroid cancer or patients with symptomatic thyroid disease. Electronically signed by: Vinny Ugalde MD 12/23/2018 3:22 PM CDT
== END ==
LOC: US 09:00
PROVIDERS: ATTEND Family Medicine
DX: E04.2 Nontoxic multinodular goiter (principal)

== ENCOUNTER → 2019-01-08 | Outpatient (CLI) | payer MEDICARE, OTHER | LOC: GMAL 10:48 | PROVIDERS: ATTEND Family Medicine | DX: D51.3 Other dietary vitamin B12 deficiency anemia (principal); D53.9 Nutritional anemia, unspecified ==

== ENCOUNTER → 2019-04-16 | Outpatient (CLI) | payer MEDICARE, OTHER | LOC: GMAL 11:11 | PROVIDERS: ATTEND Family Medicine | DX: D53.9 Nutritional anemia, unspecified (principal); I10 Essential (primary) hypertension; E78.49 Other hyperlipidemia; R53.82 Chronic fatigue, unspecified ==

== ENCOUNTER → 2019-04-17 | Outpatient (CLI) | payer MEDICARE, OTHER ==
--- NOTE | 2019-04-17 16:33 | RAD ---
EXAM DESCRIPTION: Ankle,Left 3 Views CLINICAL HISTORY: 78 years Female, PAIN COMPARISON: None available. TECHNIQUE: AP, oblique and lateral radiographs. FINDINGS: The visualized bones appear well mineralized. No acute fracture or dislocation. The ankle mortise is intact. The soft tissues appear grossly unremarkable. IMPRESSION: No acute traumatic abnormality of the left ankle is noted. Electronically signed by: Denisa Eckert MD 04/17/2019 4:31 PM CDT
--- NOTE | 2019-04-17 16:34 | RAD ---
EXAM DESCRIPTION: Foot,Left 3 Views CLINICAL HISTORY: PAIN COMPARISON: Radiographs dated 11/21/2017. TECHNIQUE: AP, LATERAL, AND OBLIQUE FINDINGS: The visualized bones appear poorly mineralized. No acute fracture or dislocation. The soft tissues appear grossly unremarkable. Mild degenerative changes of the first metatarsophalangeal joint. IMPRESSION: No acute fracture or dislocation is identified radiographically. Electronically signed by: Denisa Eckert MD 04/17/2019 4:32 PM CDT
== END ==
LOC: RAD 08:13
PROVIDERS: ATTEND Orthopaedic Surgery
DX: M25.572 Pain in left ankle and joints of left foot (principal); M79.672 Pain in left foot

== ENCOUNTER → 2019-04-20 | Outpatient (CLI) | payer MEDICARE, OTHER ==
--- NOTE | 2019-04-20 18:11 | MRI ---
EXAM DESCRIPTION: Lower Extremity,Left-FOOT. CLINICAL HISTORY: 78 years, Female, PAIN. Pain, constant, bottom of foot in arch. Pain into toes and ankle. Old ankle injury. COMPARISON: Left Ankle radiograph 04/17/2019 TECHNIQUE: MRI of the left foot was performed with multiplanar multi sequence imaging without intravenous contrast. FINDINGS: Bone and joints: No focal bone marrow edema, contusion, or fracture. Mild subcortical cystic changes noted about the second metatarsal base. Scattered mild ankle, subtalar, and midfoot osteoarthritic changes with subchondral cystic changes. Small ankle joint and talonavicular joint effusions are present. Ligaments and tendons: Mild attenuation of the Lisfranc ligament which is otherwise intact. The Lisfranc interval appears to be intact. Limited evaluation of the ankle ligaments demonstrate grossly intact medial and lateral ankle ligaments. The visualized flexor and extensor tendons are intact. No significant tenosynovitis. The plantar plates are intact. Mild thickening of the plantar fascial (measuring up to 5 mm) consistent with mild fasciopathy, no focal edema to suggest acute plantar fasciitis/enthesitis. Achilles tendon is at the upper limits of normal size full-thickness (5-6 mm) without significant internal signal alteration. Soft tissues: There is diffuse edema within Kager fat pad. IMPRESSION: 1. Moderate retrocalcaneal bursitis and edema within Kager fat pad. 2. Mild Achilles tendinosis. 3. Mild plantar fasciopathy. 4. 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 Electronically signed by: Kwasi Rodríguez DO 04/20/2019 6:10 PM CDT
== END ==
LOC: MRI 14:00
PROVIDERS: ATTEND Orthopaedic Surgery
DX: M77.52 Other enthesopathy of left foot and ankle (principal); M76.62 Achilles tendinitis, left leg; M72.2 Plantar fascial fibromatosis; M19.072 Primary osteoarthritis, left ankle and foot

== ENCOUNTER → 2019-06-02 | Outpatient (CLI) | payer MEDICARE, OTHER ==
--- NOTE | 2019-06-02 16:48 | RAD ---
EXAM DESCRIPTION: Barium Swallow: Rad-Fluoroscopy. CLINICAL HISTORY: PARALYSIS OF VOCAL CORDS AND LARYNX. Also change in voice since previous thyroid treatment. COMPARISON: None TECHNIQUE: The patient swallowed barium pill with water. The patient swallowed gas-producing granules, water, and heavy density barium under fluoroscopic visualization. The images were obtained with the patient standing and horizontal.. Patient drank medium density barium through a straw in the semi-prone position. 9 0 fluoroscopic cine loop images. 13 static fluoroscopic images. Total fluoroscopy time was 2.7 minutes.. DAP: 11.12 Gy-cm2.. FINDINGS: Patient with difficulty swallowing barium pill. Able to swallow after multiple water swallows with barium pill visible within the air-fluid level of the paraesophageal hernia. Timely swallowing with no delay or premature spill of barium. After swallowing, there is minimal residual in the right vallecula and the left piriform sinus. No laryngeal penetration or aspiration. After barium enters the thoracic esophagus, there is significant reflux of gas to the level of the thoracic inlet. The entire esophagus is patulous and distended with gas when not swallowing. Only moderately successful primary peristaltic wave with secondary and tertiary contractions well demonstrated. The hernia is periesophageal with the esophagus displaced to the right and in the hernia predominantly to the left. When rolling in the horizontal position and patient placed in supine position, the hernia feels with contrast and the scans, and and there is significant reflux above the level of the thoracic inlet, but not to the larynx. Stomach well-distended with gas and contrast with no intrinsic or extrinsic lesions. Duodenal bulb and sweep well distended with gas and contrast material with no intrinsic filling defects or mass effect. IMPRESSION: 1. No gross swallowing abnormalities, including penetration or laryngeal aspiration. 2. Moderate deficiency in the esophageal motility with secondary and tertiary contractions and patulous esophagus. 3. Variable size of paraesophageal hernia, moderate to large, with mass effect on the distal esophagus. Marked reflux above the thoracic inlet. 4. Stomach and duodenum grossly normal. Electronically signed by: Vinny Ugalde MD 06/02/2019 4:46 PM CDT
== END ==
LOC: RAD 08:25
PROVIDERS: ATTEND Student in an Organized Health Care Education/Training Program
DX: J38.02 Paralysis of vocal cords and larynx, bilateral (principal); K22.4 Dyskinesia of esophagus; K44.9 Diaphragmatic hernia without obstruction or gangrene; K21.9 Gastro-esophageal reflux disease without esophagitis

== ENCOUNTER → 2019-09-16 | Outpatient (CLI) | payer MEDICARE, OTHER ==
--- NOTE | 2019-09-17 16:21 | MAM ---
EXAM DESCRIPTION: 3D Screening BILATERAL : Digital Mammography. CLINICAL HISTORY: 78 years Female ANNUAL SCREENING . No complaints. No personal history of breast cancer. Mother with breast cancer age "30s". Menarche age 14. Childbirth age unknown. Hysterectomy age 33. HRT 5 or more years ago. Bilateral benign breast biopsies. Lifetime risk of developing breast cancer (Tyrer-Cuzick model)(%): 8.0. COMPARISON: Bilateral screening digital breast tomosynthesis May 2018 and April 2017.. TECHNIQUE: Bilateral CC and MLO projection full-field images, digital tomosynthesis mammographic technique. Bilateral digital 2-D full-field MLO images. CAD available for 2-D images. FINDINGS: The breast parenchymal density pattern is: Almost entirely fatty. No skin thickening or nipple retraction. Bilateral solitary parenchymal calcifications. Bilateral coarse calcifications. Benign type microcalcifications associated with a mass density in the upper mid left breast stable. Bilateral vascular calcifications. No new focal, stellate mass or density, focal asymmetry , and no suspicious microcalcifications bilaterally. Stable mammograms compared to prior study. IMPRESSION: Benign exam. BIRAD CATEGORY: 2 BENIGN FINDINGS. RECOMMENDATIONS: FOLLOW UP: Routine digital bilateral mammographic screening, one year interval from August 2019. Written communication explaining the IMPRESSION and follow-up, will be mailed to the patient and referring health care provider. According to the [employer], yearly mammograms are recommended starting at age 40 and continuing as long as a woman is in good health. Any breast change noted on a breast self-exam should be reported promptly to the patient's healthcare provider. Breast MRI is recommended for women with an approximately 20-25% or greater lifetime risk of breast cancer, including women with a strong family history of breast or ovarian cancer and women who have been treated for Hodgkin's disease. A negative mammographic report should not delay tissue diagnosis in patients with significant clinical history or physical findings. Extremely dense breast tissue limits the sensitivity of digital mammography. Electronically signed by: Vinny Ugalde MD 09/17/2019 4:20 PM [employer]ATFORM DEVELOPER
== END ==
LOC: MAMMO 12:51
PROVIDERS: ATTEND Family Medicine
DX: Z12.31 Encounter for screening mammogram for malignant neoplasm of breast (principal)

== ENCOUNTER → 2019-11-09 | Outpatient (CLI) | payer MEDICARE, OTHER | DX: Z01.818 Encounter for other preprocedural examination (principal) ==

== ENCOUNTER 2019-12-23 05:52 | Day surgery (SDC) | payer MEDICARE, OTHER ==
[2019-12-23] MEDS ORDERED: SODIUM CHL 0.9% 100ML MINI-BAG 100 ML IVPB ONE (06:15)
[2019-12-23] MEDS ORDERED: ceFAZolin SODIUM 1 GM VIAL ONE ×2 (06:15→06:49)
[2019-12-23] MEDS ORDERED: LACTATED RINGERS 1,000 ML ONE (06:15)
[2019-12-23] MEDS ORDERED: BUPIVACAINE 0.25% INJ 30 ML VIAL INJ ONE ×3 (06:49→08:22)
[2019-12-23] MEDS ORDERED: VANCOMYCIN HCL INJ 1,000 MG VIAL IVPB ONE ×3 (06:49→08:22)
[2019-12-23] MEDS ORDERED: LIDOCAINE 1% 10 ML VIAL INJ ONE ×4 (06:49→08:22)
[2019-12-23] MEDS ORDERED: diphenhydrAMINE HCL 50 MG/ML VIAL ONE (07:00)
[2019-12-23] MEDS ORDERED: PROPOFOL 200 MG/20 ML VIAL IV ONE (07:00)
[2019-12-23] MEDS ORDERED: ceFAZolin SODIUM 1 GM VIAL IRRIG ONE ×2 (07:14→08:22)
[2019-12-23] MEDS ORDERED: LACTATED RINGERS 1,000 ML IVS ONE (07:40)
[2019-12-23] MEDS ORDERED: fentaNYL CITRATE INJ 50 MCG/ML 2 ML AMP ONE (08:11)
[2019-12-23] MEDS ORDERED: KETAMINE HCL 100 MG/ML VIAL ONE (08:11)
[2019-12-23 10:10] VITALS: BP 111/66; TEMP 97.8; O2SAT 94
--- NOTE | 2019-12-24 08:39 | OP ---
DATE OF PROCEDURE: 12/23/19 PREOPERATIVE DIAGNOSIS: 1. Mucoid cyst of the right thumb. POSTOPERATIVE DIAGNOSIS: 1. Mucoid cyst of the right thumb. PROCEDURE: 1. Excision of cyst. SURGEON: Joaquin Yost MD. REGISTERED NURSE FIRST ASSISTANT: Vinny Nur CST, SA-C. ANESTHESIA: Local with sedation. COMPLICATIONS: None. FINDINGS: Large mucoid cyst on the dorsum of the thumb extending from the IP joint overlying the proximal portion of the distal phalanx. INDICATION: Ms. Mays has a history of mass on the thumb which has been drained a couple of times in the clinic. Unfortunately, it continues to recur. Because of the recurrent nature of it, she has requested operative intervention. After discussing the risks, benefits and alternatives to that, she gave informed consent. PROCEDURE: The patient was brought to the Operating Room and placed in supine position. Under sterile conditions, local anesthetic was injected into the operative area. The hand and arm were sterilely prepped and draped. Following prepping and draping, an incision was made extending from the germinal matrix proximally. A flap was elevated from the radial aspect to the ulnar aspect. Careful dissection was performed to not penetrate the overlying skin. The cyst was identified and followed down to the IP joint. The cyst was excised and following excision of the cyst, the base of it was cauterized. Following that, the wound was very thoroughly irrigated and closed with running suture. Sterile dressings were placed and the patient was then taken back to the Day Surgery Unit. POSTOPERATIVE PLAN: She will followup with us in two days. #[id number] MTDD
== END 2019-12-23 10:00 | disposition home or self-care (01) ==
LOC: AMB 05:52
PROVIDERS: ATTEND Orthopaedic Surgery
DX: L72.8 Other follicular cysts of the skin and subcutaneous tissue (principal); I10 Essential (primary) hypertension; K21.9 Gastro-esophageal reflux disease without esophagitis; E07.9 Disorder of thyroid, unspecified; Z87.891 Personal history of nicotine dependence; Z79.899 Other long term (current) drug therapy
CPT/HCPCS: 11420; 80307; J0690; J1200; J3010; J3370; J3490; J7050; J7120

== ENCOUNTER → 2020-01-04 | Outpatient (CLI) | payer MEDICARE, OTHER | LOC: GMAL 15:29 | PROVIDERS: ATTEND Family Medicine | DX: E03.9 Hypothyroidism, unspecified (principal) ==

== ENCOUNTER → 2020-03-25 | Outpatient (CLI) | payer MEDICARE, OTHER ==
--- NOTE | 2020-03-25 13:49 | RAD ---
EXAM DESCRIPTION: Foot,Left 3 Views CLINICAL HISTORY: FOOT PAIN LEFT COMPARISON: April 17, 2019 IMPRESSION: 3 views of the left foot show diffuse osteopenia the osseous structures without acute fracture, focal bone destruction, or joint dislocation. Moderate joint space narrowing of the second metacarpal phalangeal joint is more pronounced than previous exam with mild subluxation suggesting osteoarthritic changes. 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 Tiny plantar enthesophyte of the calcaneus. Mild soft tissue swelling over the dorsum of the midfoot is slightly more prominent than previous. Electronically signed by: Livan Valencia MD 03/25/2020 1:48 PM CDT
== END ==
LOC: RAD 09:00
PROVIDERS: ATTEND Orthopaedic Surgery
DX: M19.072 Primary osteoarthritis, left ankle and foot (principal); S93.145A Subluxation of metatarsophalangeal joint of left lesser toe(s), initial encounter; M85.872 Other specified disorders of bone density and structure, left ankle and foot; M77.32 Calcaneal spur, left foot; M25.872 Other specified joint disorders, left ankle and foot; M79.9 Soft tissue disorder, unspecified

== ENCOUNTER → 2020-08-03 | Outpatient (CLI) | payer MEDICARE, OTHER | LOC: GMAL 11:01 | PROVIDERS: ATTEND Family Medicine | DX: E03.9 Hypothyroidism, unspecified (principal); I10 Essential (primary) hypertension; Z79.899 Other long term (current) drug therapy; E78.49 Other hyperlipidemia ==

== ENCOUNTER → 2020-10-19 | Outpatient (CLI) | payer MEDICARE, OTHER | LOC: GMAL 14:40 | PROVIDERS: ATTEND Family Medicine | DX: N39.0 Urinary tract infection, site not specified (principal) ==

== ENCOUNTER → 2020-10-21 | Outpatient (CLI) | payer MEDICARE, OTHER ==
--- NOTE | 2020-10-21 15:53 | MAM ---
EXAM DESCRIPTION: 3D Screening BILATERAL : Digital Mammography. CLINICAL HISTORY: 79 years Female SCREENING . No complaints. Mother with breast cancer and the fourth decade. Menarche age 14. Multiple childbirth age unknown. Hysterectomy age 30. 35 years ago.. Lifetime risk of developing breast cancer (Tyrer-Cuzick model)(%): 8.0. COMPARISON: Bilateral screening digital breast tomosynthesis May 2018 and August 2019. TECHNIQUE: Bilateral CC and MLO projection full-field images, digital tomosynthesis mammographic technique. Bilateral digital 2-D full-field MLO images. CAD available for 2-D images. FINDINGS: The breast parenchymal density pattern is: Scattered areas of fibroglandular density. Bilateral coarse calcifications. Bilateral solitary calcifications. Axillary nodes. 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 No skin thickening or nipple retraction No new focal, stellate mass or density, focal asymmetry , and no suspicious microcalcifications bilaterally. Stable mammograms compared to prior study. IMPRESSION: Benign exam. BIRAD CATEGORY: 2 BENIGN FINDINGS. RECOMMENDATIONS: FOLLOW UP: Routine digital bilateral mammographic screening, one year interval from September 2020. Written communication explaining the IMPRESSION and follow-up, will be mailed to the patient and referring health care provider. According to the [employer], yearly mammograms are recommended starting at age 40 and continuing as long as a woman is in good health. Any breast change noted on a breast self-exam should be reported promptly to the patient's healthcare provider. Breast MRI is recommended for women with an approximately 20-25% or greater lifetime risk of breast cancer, including women with a strong family history of breast or ovarian cancer and women who have been treated for Hodgkin's disease. A negative mammographic report should not delay tissue diagnosis in patients with significant clinical history or physical findings. Extremely dense breast tissue limits the sensitivity of digital mammography. 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
== END ==
LOC: MAMMO 12:51
PROVIDERS: ATTEND Family Medicine
DX: Z12.31 Encounter for screening mammogram for malignant neoplasm of breast (principal)